=== PATIENT | female | born 1990 | race Caucasian/White ===

== ENCOUNTER 2018-01-26 04:20 | Emergency (ER) | payer OTHER ==
[2018-01-26 04:26] VITALS: BP 138/79
[2018-01-26] MEDS ORDERED: AMOXICILLIN 250 MG CAPSULE PO STA (04:35)
[2018-01-26] MEDS ORDERED: IBUPROFEN 400 MG TABLET PO STA (04:35)
[2018-01-26] MEDS ORDERED: CARBAMIDE PEROXIDE 6.5% OTIC DROPS RIGHTEAR STA (04:35)
--- NOTE | 2018-01-26 04:40 | ED Physician Documentation ---
PD HPI HEENT - Stated complaint Stated Complaint: R EAR PX - Chief complaint Chief Complaint: Heent - History obtained from History obtained from: Patient, Family - History of Present Illness Timing - onset: Today Timing - details: Abrupt onset, Still present Location: Right ear Associated symptoms: Congestion. No: Fever Similar symptoms before: Has not had sx before Recently seen: Not recently seen - Additional information Additional information: Patient is a 28 year old female with no significant past medical history who is presenting to the emergency department for right sided ear pain. Patient states that she has been sick this past week with uri symptoms but tonight woke from sleep due to pain in her right ear. Review of Systems Constitutional: denies: Fever, Chills Eyes: reports: Reviewed and negative Ears: reports: Ear pain. denies: Drainage/discharge Nose: reports: Rhinorrhea / runny nose, Congestion Throat: reports: Sore throat Respiratory: denies: Cough, Wheezing GI: denies: Nausea, Vomiting : reports: Reviewed and negative Skin: denies: Rash, Lesions Musculoskeletal: denies: Neck pain Neurologic: denies: Headache Immunocompromised: denies: Immunocompromised PD PAST MEDICAL HISTORY - Past Medical History Past Medical History: No - Past Surgical History Past Surgical History: Yes HEENT: Tonsil/Adenoidectomy - Present Medications Home Medications: Ambulatory Orders Medication Instructions Recorded Confirmed Amoxicillin 1,000 mg PO BID 10 Days capsule 01/26/18 - Allergies Allergies/Adverse Reactions: Allergies Allergy/AdvReac Type Severity Reaction Status Date / Time No Known Drug Allergies Allergy Verified 01/26/18 04:26 - Social History Does the pt smoke?: No Smoking Status: Never smoker Does the pt drink ETOH?: No Does the pt have substance abuse?: No - Immunizations Immunizations are current?: Yes - POLST Patient has POLST: No PD ED PE NORMAL - Vitals Vital signs reviewed: Yes - General General: Alert and oriented X 3, No acute distress, Well developed/nourished - HEENT HEENT: Atraumatic, PERRL, Moist mucous membranes, Pharynx benign, Dentition benign - Neck Neck: Supple, no meningeal sign - Cardiac Cardiac: RRR - Respiratory Respiratory: No respiratory distress - Abdomen Abdomen: Soft - Derm Derm: Normal color, Warm and dry, No rash - Extremities Extremities: No deformity - Neuro Neuro: Alert and oriented X 3, No motor deficit, No sensory deficit, Normal speech Eye Opening: Spontaneous Motor: Obeys Commands Verbal: Oriented GCS Score: 15 PD ED PE EXPANDED - HEENT HEENT: R TM red, R TM retracted, L TM red, Other (moderate right sided cerumen impaction) Results - Vitals Vitals: Vital Signs - 24 hr 01/26/18 04:24 Temperature 36.6 C Heart Rate 87 Respiratory 16 Rate Blood Pressure 138/79 H O2 Saturation 100 Oxygen O2 Source Room air PD MEDICAL DECISION MAKING - ED course Complexity details: reviewed old records, reviewed results, re-evaluated patient , considered differential, d/w patient, d/w family ED course: Patient was seen and examined at bedside. Cerumen was removed by me in the right ear. Patients findings were consistent with otitis media. patient required no further work up and was stable for discharge with outpatient follow up. Departure - Departure Disposition: 01 Home, Self Care Clinical Impression: Otitis media Condition: Good Instructions: ED Otitis Media Acute Adult Follow-Up: primary,care provider [Other] - Within 3 Days Prescriptions: Amoxicillin 1,000 mg PO BID 10 Days capsule Comments: Your pain is coming from an ear infection and the ear wax (cerumen). You will take the antibiotics twice a day for the next 10 days. You can also use the debrox to keep the ear canal clear. You can take motrin or tylenol as needed for pain. You should follow up with your doctor if your symptoms don't improve. You may return to the emergency department at any time for new, worsening or uncontrollable symptoms.
== END 2018-01-26 05:05 | disposition home or self-care (01) ==
LOC: ED 04:20
DX: H66.90 Otitis media, unspecified, unspecified ear (principal); H61.21 Impacted cerumen, right ear
CPT/HCPCS: 99283; A9270

== ENCOUNTER 2019-09-17 08:00 | Outpatient (CLI) | payer OTHER ==
[2019-09-17 13:37] LABS: HGB - HEMOGLOBIN 13.1 g/dL (12.0-16.0); MEAN CORPUSCULAR HEMOGLOBIN 28.5 pg (27.0-31.0); MEAN CORPUSCULAR HGB CONC 32.1 g/dL (32.0-36.0); MEAN CORPUSCULAR VOLUME 88.9 fL (81.0-99.0); MEAN PLATELET VOLUME 10.9 fL (7.9-10.8); RED BLOOD COUNT 4.59 10^6/uL (4.20-5.40); RED CELL DISTRIBUTION WIDTH 13.2 % (12.0-15.0)
[2019-09-17 14:38] LABS: CRP - C-REACTIVE PROTEIN < 1.0 mg/dL (0-1.0)
[2019-09-17 14:59] LABS: RHEUMATOID FACTOR NEGATIVE (Negative)
[2019-09-19 12:17] LABS: ANA SCREEN NEGATIVE (NEGATIVE)
== END 2019-09-17 23:59 | disposition home or self-care (01) ==
LOC: LAB.WCP 08:00
PROVIDERS: ATTEND Family Medicine
DX: M79.641 Pain in right hand (principal); M25.50 Pain in unspecified joint
CPT/HCPCS: 36415; 84550; 85027; 85651; 86038; 86140; 86200; 86430

== ENCOUNTER 2019-09-17 10:30 | Outpatient (CLI) | payer OTHER ==
--- NOTE | 2019-09-18 08:31 | XRAY Report ---
Reason: RIGHT HAND PAIN, ARTHRALGIA Procedure Date: 09/17/2019 Accession Number: [id number] / [id number] Procedure: WCP - Hand 2 View RT CPT Code: Final Report FULL RESULT: EXAM: RIGHT HAND RADIOGRAPHY EXAM DATE: 09/17/2019 10:30 AM. CLINICAL HISTORY: RIGHT HAND PAIN, ARTHRALGIA. COMPARISON: None. TECHNIQUE: 2 views. FINDINGS: Bones: Normal. No fractures or bone lesions. Joints: Normal. No subluxations. Soft Tissues: Normal. No soft tissue swelling. IMPRESSION: Normal hand 2 view radiography. [facility]
== END 2019-09-17 23:59 | disposition home or self-care (01) ==
LOC: DI.WCP 10:30
PROVIDERS: ATTEND Family Medicine
DX: M25.541 Pain in joints of right hand (principal)